=== PATIENT | female | born 1975 | race Hispanic/Latino ===

== ENCOUNTER 2024-05-14 05:58 | Day surgery (SDC) | payer OTHER ==
[2024-05-12 12:19] LABS: BASOPHILS # (AUTO) 0.04 K/uL (0.00-0.20); BASOPHILS % (AUTO) 0.4 % (0.0-5.0); EOSINOPHILS % (AUTO) 1.1 % (0.0-8.0); HEMATOCRIT 37.9 % (36-48); IMMATURE GRANULOCYTE ABSOLUTE 0.04 K/uL (0-1); LYMPHOCYTES # (AUTO) 2.7 K/uL (1.0-4.8); LYMPHOCYTES % (AUTO) 28.6 % (21.0-51.0); MEAN CORPUSCULAR HEMOGLOBIN 30.3 pg (27.0-33.0); MEAN CORPUSCULAR HGB CONC 34.8 g/dL (32.0-36.0); MEAN CORPUSCULAR VOLUME 87.1 fL (79-99); MONOCYTES # (AUTO) 0.7 K/uL (0.1-1.0); MONOCYTES % (AUTO) 7.4 % (3.0-13.0); NEUTROPHILS # (AUTO) 5.8 K/uL (1.8-7.7); NEUTROPHILS % (AUTO) 62.1 % (40.0-77.0); PLATELET COUNT (AUTO) 316 K/uL (130-400); RED BLOOD CELL COUNT(AUTO) 4.35 MIL/uL (4.00-5.50); RED CELL DISTRIBUTION WIDTH 13.2 % (11.0-15.5); WHITE BLOOD COUNT (AUTO) 9.3 K/uL (4.8-10.8)
[2024-05-12 12:31] LABS: INR <= 0.93 (0.85-1.15); PROTHROMBIN TIME 9.8 SEC (9.6-11.6)
[2024-05-12 12:32] LABS: PARTIAL THROMBOPLASTIN TIME 27.2 SEC (26.3-35.5)
[2024-05-12 12:35] LABS: CREATININE 0.7 mg/dL (0.5-1.0); POTASSIUM 3.4 mmol/L (3.5-5.1)
[2024-05-12 18:53] VITALS: BP 170/84; PULSE 82; RESP 17; TEMP 98.4
[2024-05-14] VITALS (15 sets, daily range): BP systolic 114–153; BP diastolic 71–86; PULSE 62–77; RESP 12–17; TEMP 97.3
[~2024-05-14] VITALS: Ht 160 cm; Wt 97.5 kg
[~2024-05-14 05:58] MED LIST: ACET325C6 PO; ASCO1CAP5 PO; BACI1CAP10 PO; CHOL500051 PO; CYCL-309 PO
[2024-05-14] MEDS ORDERED: FENTanyl CITRate PF 50 MCG/1 ML 2ML VIAL ONE ×2 (06:55→07:49)
[2024-05-14] MEDS ORDERED: MIDAZOLAM HCL 1 MG/ML 2ML VIAL ONE (06:55)
[2024-05-14] MEDS ORDERED: proPOFol 10 MG/ML 20ML VIAL IV ONE (06:55)
[2024-05-14] MEDS ORDERED: ACET-2079 PO (07:11)
[2024-05-14] MEDS ORDERED: BUPIvacaine/PF 0.5% 30ML VIAL ONE (07:13)
[2024-05-14] MEDS ORDERED: ONDANSETRON 4MG INJ ONE (07:14)
[2024-05-14] MEDS ORDERED: rocuRONium bROMide 10MG/1ML 5ML VL ONE (07:14)
[2024-05-14] MEDS: ceFAZolin SODIUM 2 GM VIAL ONE (07:30)
[2024-05-14] MEDS: LACTATED RINGERS 1000ML 1,000 ML IV ONE (07:30)
[2024-05-14] MEDS: ceFAZolin SODIUM 2 GM VIAL IVPB ONE (07:30)
[2024-05-14] MEDS ORDERED: metoCLOPRAmide 10 MG/2 ML VIAL ONE (07:52)
[2024-05-14] MEDS ORDERED: dexaMETHasone SOD PHOSPHATE 10MG/ML 1ML VIAL ONE (07:52)
[2024-05-14] MEDS: ketOROlac 30MG VIAL (30MG/ML) ONE (08:40)
[2024-05-14] MEDS: ONDANSETRON 4MG INJ ONE (08:47)
== END 2024-05-14 10:06 | disposition home or self-care (01) ==
LOC: DAH 05:58
PROVIDERS: ATTEND Student in an Organized Health Care Education/Training Program
DX: G56.01 Carpal tunnel syndrome, right upper limb (principal); Z79.01 Long term (current) use of anticoagulants; Z79.899 Other long term (current) drug therapy
CPT/HCPCS: 80048; 84703; 85025; 85610; 85730; 36415; 64721; A4663; J7120; J3010 ×2; J1100; J3490; J2250; J2704; J2405 ×2; J1885; J0665 ×2; J2765; J0690 ×2; A6223; A4649; A4930; A5120; A4215; A4223; A4213; A4222; A4221; A4600